=== PATIENT | female | born 1985 | race Caucasian/White ===

== ENCOUNTER 2018-07-12 13:18 | Emergency (ER) | payer OTHER ==
[2018-07-12] MEDS ORDERED: Ibuprofen TAB* 600 MG PO ONE (15:37)
[2018-07-12 16:19] VITALS: BP 107/69
--- NOTE | 2018-07-12 17:59 | ED ---
Back Pain - HPI Summary HPI Summary: Patient is a 32-year-old female who presents emergency department for neck and back pain after fall that occurred earlier today. Patient significant place department and was getting on for car when she slipped on ice landing on her upper back and neck. Patient denies head injury or loss of consciousness. She notes tingling and pain upper back and neck area and she denies chest pain, shortness of breath, numbness, tingling or weakness. No past medical history. Symptoms are mild in severity. Movement makes symptoms worse. Rest makes symptoms better. - History of Current Complaint Chief Complaint: EDBackInjuryPain Stated Complaint: BACK PAIN Time Seen by Provider: 07/12/18 14:50 Hx Obtained From: Patient Pain Intensity: 3 Pain Scale Used: 0-10 Numeric - Allergies/Home Medications Allergies/Adverse Reactions: Allergies Allergy/AdvReac Type Severity Reaction Status Date / Time No Known Allergies Allergy Verified 12/13/15 02:33 PMH/Surg Hx/FS Hx/Imm Hx Previously Healthy: Yes Infectious Disease History: No Infectious Disease History: Reports: Traveled Outside the in Last 30 Days - [facility], [facility], [place] - Family History Known Family History: Positive: Unknown, Non-Contributory - Social History Occupation: Employed Full-time Lives: Alone Alcohol Use: Rare Hx Substance Use: No Substance Use Type: Reports: None Hx Tobacco Use: Yes Smoking Status (MU): Former Smoker Review of Systems Cardiovascular: Negative Respiratory: Negative Positive: Other - Upper back and neck xray Skin: Negative Neurological: Negative Negative: Headache, Weakness, Paresthesia, Numbness, Syncope All Other Systems Reviewed And Are Negative: Yes Physical Exam Triage Information Reviewed: Yes Vital Signs On Initial Exam: Initial Vitals Temp Pulse Resp BP Pulse Ox 97.9 F 72 18 128/72 99 07/12/18 13:22 07/12/18 13:22 07/12/18 13:22 07/12/18 13:22 07/12/18 13:22 Vital Signs Reviewed: Yes Appearance: Positive: Well-Appearing - Pt. sitting in chair in NAD. Skin: Positive: Warm, Dry Head/Face: Positive: Normal Head/Face Inspection Eyes: Positive: Normal, EOMI, BINDU Neck: Positive: Supple, Other: - Mild midline tenderness noted with pain with ROM. Musculoskeletal: Positive: Normal, Strength/ROM Intact, Other - Midline tenderness to upper T spine. No CVA tenderness bilaterally. Neurological: Positive: Normal, Alert, Oriented to Person Place, Time, CN Intact II-III Psychiatric: Positive: Affect/Mood Appropriate Diagnostics - Vital Signs Vital Signs Temp Pulse Resp BP Pulse Ox 07/12/18 16:41 98.9 F 66 16 107/69 100 07/12/18 16:18 99.0 F 65 16 107/69 100 07/12/18 13:22 97.9 F 72 18 128/72 99 - Laboratory Lab Statement: Any lab studies that have been ordered have been reviewed, and results considered in the medical decision making process. Back Pain Course/Dx - Course Course Of Treatment: Patient presenting with upper back pain after falling on concrete. She is no neurological deficits. No head injury. Pt. c/o midline back and neck pain. X-rays obtained. X-rays per radiology negative for acute findings. Results discussed with pt. advised patient anti-inflammatories and warm moist TV. Massage. To follow up with your Workmen's Compensation physician or Clinic. To return to the ER if symptoms change or worsen. Work excuse given. Patient understands and agrees. - Diagnoses Differential Diagnosis/HQI/PQRI: Positive: Arthritis, Fracture, Herniated Disc, Strain, Sprain Provider Diagnoses: Strain of thoracic region, Cervical strain Discharge - Sign-Out/Discharge Documenting (check all that apply): Patient Departure - Discharge Plan Condition: Good Disposition: HOME Patient Education Materials: Cervical Strain (ED), Thoracic Pain (ED) Forms: *Work Release Referrals: [facility] [Outside] Additional Instructions: Follow up with your workmen's compensation physician or the [facility] Apply warm compresses to neck and back NSAIDS for pain as directed such as ibuprofen Gentle massage Activity as tolerated Return to ER if symptoms change or worsen - Billing Disposition and Condition Condition: GOOD Disposition: Home
== END 2018-07-12 16:41 | disposition home or self-care (01) ==
LOC: ED 13:18
DX: S29.012A Strain of muscle and tendon of back wall of thorax, initial encounter (principal); S16.1XXA Strain of muscle, fascia and tendon at neck level, initial encounter; M54.9 Dorsalgia, unspecified; M54.2 Cervicalgia; Z87.891 Personal history of nicotine dependence; W19.XXXA Unspecified fall, initial encounter; Y92.9 Unspecified place or not applicable
CPT/HCPCS: 72050; 72070; 99282; A9270-GY

== ENCOUNTER 2018-12-24 13:55 | Emergency (ER) | payer OTHER ==
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
[2018-12-24] MEDS ORDERED: Acetaminophen TAB* 325 MG PO ONE (15:24)
[2018-12-24] MEDS ORDERED: Ibuprofen TAB* 600 MG PO ONE (15:24)
[2018-12-24 15:57] VITALS: BP 108/68
== END 2018-12-24 15:56 | disposition home or self-care (01) ==
LOC: ED 13:55
DX: S16.1XXA Strain of muscle, fascia and tendon at neck level, initial encounter (principal); X50.9XXA Other and unspecified overexertion or strenuous movements or postures, initial encounter; Y93.72 Activity, wrestling; Y99.0 Civilian activity done for income or pay; Z87.891 Personal history of nicotine dependence
CPT/HCPCS: 99281; A9270-GY